=== PATIENT | female | born 1945 | race Caucasian/White ===

== ENCOUNTER 2018-04-04 10:06 | Outpatient (CLI) | payer MEDICARE, OTHER ==
[2018-04-04] MEDS ORDERED: TRIAMCINOLONE ACETONIDE FS SCH (10:45)
[2018-04-04] MEDS ORDERED: PRE FILLED FS SCH (10:45)
[2018-04-04] MEDS ORDERED: BUPIVACAINE 0.5% FS SCH (10:45)
[2018-04-04] MEDS ORDERED: Iopamidol 300 61% 50 ML VIAL FS ONE (11:05)
--- NOTE | 2018-04-04 15:46 | RAD ---
LEFT-SIDED SHOULDER STEROID INJECTION: HISTORY: Left shoulder arthritis. RADIATION DOSIMETRY: Fluoroscopy 0.8 minutes. AK 161 Gy. TECHNIQUE: Informed consent was obtained from the patient. The left shoulder joint was prepped and draped in th e usual sterile manner. A 1% Lidocaine solution was used to anesthetize the overlying soft tissues. A 22 gauge spinal needle was used to gain access into the left shoulder joint. Approximately 0.5 mL of sterile contrast was introduced, to confirm position. A total of 5 mL of 0.5% Marcaine and 80 mg of triamcinolone acetone was injected into the left shoulder joint without complications. IMPRESSION: Left shoulder steroid injection. POS: [facility]
== END 2018-04-04 10:07 | disposition home or self-care (01) ==
LOC: RAD 10:06
PROVIDERS: ATTEND Orthopaedic Surgery
DX: M19.012 Primary osteoarthritis, left shoulder (principal)
CPT/HCPCS: 23350; J3301; J3490; Q9967

== ENCOUNTER 2019-01-05 09:31 | Outpatient (CLI) | payer MEDICARE, OTHER ==
[2019-01-05] MEDS ORDERED: BUPIVACAINE 0.5% FS SCH (11:15)
[2019-01-05] MEDS ORDERED: TRIAMCINOLONE ACETONIDE FS SCH (11:15)
--- NOTE | 2019-01-05 12:57 | RAD ---
Fluoroscopically guided steroid injection left shoulder: DATE: 01/05/2019 HISTORY: 73-year-old female with chronic left shoulder pain due to osteoarthritis. TECHNIQUE: Signed informed consent obtained. Anterior skin of left shoulder prepped and draped in usual sterile fashion. 25-gauge needle used to apply buffered lidocaine. 22-gauge spinal needle advanced under brief, intermittent fluoroscopy into the intracapsular space at the anterior superior aspect of the g lenohumeral joint. Small amount of Isovue injected to confirm intracapsular position of needle tip. Mixture of 5 mL of 5% Marcaine, and 1 mL of 40 mg/mL of Kenalog suspension, injected into the intraca psular space. Needle removed. Patient tolerated procedure well. No consultations. FINDINGS: Very large osteophyte protruding inferiorly from left glenohumeral joint. High-grade joint space narr owing with sclerosis of glenohumeral joint. IMPRESSION: 1. High-grade osteoarthrosis of the inferior aspect of the glenohumeral joint, with very large osteop hytes inferiorly. 2. Technically successful steroid injection..
[2019-01-05] MEDS ORDERED: Iopamidol 300 61% 30 ML VIAL ONE (13:54)
== END 2019-01-05 09:32 | disposition home or self-care (01) ==
LOC: RAD 09:31
PROVIDERS: ATTEND Family Medicine Sports Medicine
DX: M19.012 Primary osteoarthritis, left shoulder (principal)
CPT/HCPCS: 23350; J3301; J3490; Q9967